=== PATIENT | male | born 1965 | race Caucasian/White ===

== ENCOUNTER 2019-04-08 05:50 | Emergency (ER) | payer BC ==
[2019-04-08 05:59] VITALS: BP 131/86; PULSE 70; RESP 18; TEMP 98
[2019-04-08] MEDS ORDERED: ACET/COD 300 MG/30 MG STARTER PACK 6 TAB BTL PO STA (06:29)
--- NOTE | 2019-04-08 06:29 | ED ---
Lower Extremity Injury HPI - General Chief Complaint: Extremity Injury, Lower Stated Complaint: knee pain Time Seen by Provider: 04/08/19 06:01 Source: patient Mode of arrival: ambulatory Limitations: no limitations - History of Present Illness Initial Comments: 53-year-old male presenting today for chief complaint of right knee pain x 1 day. Patient states he he tripped yesterday falling onto his knee anteriorly then bent his back backwards with his knee still in a flexed position under him. He states that since with flexion he has pain posteriorly. Patient denies dislocation. Denies bruising behind the knee, numbness tingling cooler or pallor of the extremity. Patient states he is able to flex the knee however this increases the pain patient is able to weight-bear he denies any pain in the ankle or foot denies any hip pain and low back pains as injury to the head or neck. Patient was concerned that he hurt a ligament and presented to the ER this morning for further evaluation. Upon arrival patient appears well no distress. - Related Data Allergies Allergy/AdvReac Type Severity Reaction Status Date / Time meperidine [From Demerol] Allergy Rash/Hives Verified 04/08/19 05:58 Review of Systems ROS Statement: Those systems with pertinent positive or pertinent negative responses have been documented in the HPI. ROS Other: All systems not noted in ROS Statement are negative. Past Medical History Past Medical History: Hyperlipidemia History of Any Multi-Drug Resistant Organisms: None Reported Past Surgical History: Adenoidectomy, Ear Surgery, Hernia Repair, Tonsillectomy Additional Past Surgical History / Comment(s): rhinoplasty, uvula removed due to sleep apnea, Past Psychological History: No Psychological Hx Reported Smoking Status: Former smoker Past Alcohol Use History: Daily, Heavy Past Drug Use History: None Reported General Exam - General Exam Comments Initial Comments: General: The patient is awake and alert, in no distress, and does not appear acutely ill. Eye: +3 mm pupils are equal, round and reactive to light, extra-ocular movements are intact. No nystagmus. There is normal conjunctiva bilaterally. No signs of icterus. Cardiovascular: There is a regular rate and rhythm. No murmur, rub or gallop is appreciated. Respiratory: Lungs are clear to auscultation, respirations are non-labored, breath sounds are equal. No wheezes, stridor, rales, or rhonchi. Musculoskeletal: Normal inspection no swelling appreciated of the knees b/l. No ecchymosis, or hematomas noted. Patient refuses to full flex at the right knee secondary to pain but states that he can fully move the extremity. FUll ROM at the ankles and hips b/l Full extension of the knees b/l. Strength 5/5. Sensation intact proximal and distal to the injury site. DP pulses equal bilaterally 2+. Neurological: A&O x 3. CN II-XII intact grossly, There are no obvious motor or sensory deficits. Coordination appears grossly intact. Speech is normal. Skin: Skin is warm and dry and no rashes or lesions are noted. Psychiatric: Cooperative, appropriate mood & affect, normal judgment. Limitations: no limitations Course Vital Signs 04/08/19 05:55 Temperature 98.0 F Pulse Rate 70 Respiratory 18 Rate Blood Pressure 131/86 O2 Sat by Pulse 97 Oximetry Medical Decision Making - Medical Decision Making 53-year-old male presenting today for chief complaint of right knee pain after fall. patient N/V intact on exam. No history of dislocation, pain is posterior, no hematomas or skin changes noted. XR revealed a suprapatellar effusion and otherwise there is no acute osseous process. At this time we cannot rule out ligamentous injury and place patient in a knee immobilizer giving him nonweightbearing instruction or an orthopedic follow-up. Return parameters were discussed and appropriate use of Tylenol 3 which was provided as a starter pack in the emergency department. Patient was agreeable to this care plan and discharge at this time discussed case attending provider Dr. sen who was agreeable to this care plan. Disposition Clinical Impression: Right knee pain, Suprapatellar effusion of knee, Fall Disposition: HOME SELF-CARE Condition: Good Instructions (If sedation given, give patient instructions): Knee Sprain (ED) Additional Instructions: Please use medication as discussed. Please follow-up with orthopedic surgery as discussed, no weight bearing on the right knee use crutches for ambulation, while ambulating recommend knee immobilizer but be sure to remove periodically throughout day and at night to flex and extend knee while sitting. Please return to emergency room if the symptoms increase or worsen or for any other concerns. Is patient prescribed a controlled substance at d/c from ED?: No Referrals: Caio Morton III, MD [Primary Care Provider] - 1-2 days Makim,Vern, MD [STAFF PHYSICIAN] - 1-2 days Time of Disposition: 06:40
--- NOTE | 2019-04-08 06:37 | XR ---
EXAM: XR Right Knee, 3 Views CLINICAL HISTORY: Reason: knee pain after fall TECHNIQUE: Three views of the right knee. COMPARISON: No relevant prior studies available. FINDINGS: Bones/joints: No acute fracture. No dislocation. Small suprapatellar effusion. Soft tissues: Unremarkable. IMPRESSION: No evidence of acute fracture or dislocation.
== END 2019-04-08 07:02 | disposition home or self-care (01) ==
LOC: EC 05:50
DX: M25.461 Effusion, right knee (principal); Z88.5 Allergy status to narcotic agent; Z87.891 Personal history of nicotine dependence
CPT/HCPCS: 99283

== ENCOUNTER → 2020-11-08 | Outpatient (CLI) | payer BC | END | disposition home or self-care (01) | LOC: LABWHC1 11:36 | PROVIDERS: ATTEND Surgery Plastic and Reconstructive Surgery | DX: I10 Essential (primary) hypertension (principal) | CPT/HCPCS: 36415; 93005 ==

== ENCOUNTER 2020-11-25 07:08 | Day surgery (SDC) | payer BC ==
[2020-11-22 14:53] VITALS: BMI 31.5
[~2020-11-25 07:08] MED LIST: DEXAMETHASONE SOD PHOSPHATE 4 MG/ML 1 ML VIAL IV ONE; HEPARIN SODIUM,PORCINE/PF 5,000 UNIT/0.5 ML SYRINGE SQ PRN; HYDROmorphone 0.5 MG/0.5 ML SYRINGE IVP PRN; LACTATED RINGERS 1,000 ML IV SCH; LIDOCAINE 1% (10MG/ML) FOR IV START INTRADERMA PRN; ONDANSETRON 4 MG/2 ML VIAL IVP ONE
[2020-11-25] MEDS ORDERED: GABAPENTIN 300 MG CAP PO STA (07:52)
[2020-11-25] MEDS ORDERED: ACETAMINOPHEN TAB 500 MG TAB PO STA (07:52)
[2020-11-25] MEDS ORDERED: TAMSULOSIN 0.4 MG CAP.ER.24H PO STA (07:52)
--- NOTE | 2020-11-25 07:56 | P.GSHP ---
History of Present Illness H&P Date: 11/25/20 CHIEF COMPLAINT: Ventral hernia HISTORY OF PRESENT ILLNESS: The patient is a 55-year-old male who presents with a history of swelling and pain along the abdomen from a hernia. Now he presents for surgical intervention. PAST MEDICAL HISTORY: Please see list. PAST SURGICAL HISTORY: Please see list. MEDICATIONS: Please see list. ALLERGIES: Please see list. SOCIAL HISTORY: No illicit drug use FAMILY HISTORY: No reports of Crohn disease or ulcerative colitis. REVIEW OF ORGAN SYSTEMS: CONSTITUTIONAL: No reports of fevers or chills. No reports of weight loss despite prior attempts. GI: Denies any blood in stools or constipation. PHYSICAL EXAM: VITAL SIGNS: Stable GENERAL: Well-developed pleasant male in no acute distress. HEENT: No scleral icterus. Extraocular movements grossly intact. Moist buccal mucosa. NECK: Supple without lymphadenopathy. CHEST: Unlabored respirations. Equal bilateral excursions. CARDIOVASCULAR: Regular rate and rhythm. Distal 2+ pulses. ABDOMEN: Soft, nondistended. Palpable defect of the abdomen. No peritoneal signs. MUSCULOSKELETAL: No clubbing, cyanosis, or edema. ASSESSMENT: 1. Ventral hernia PLAN: 1. Recommend proceeding with robotic ventral hernia repair with mesh. 2. Benefits and risks of surgical intervention was discussed including possibility of open technique. 3. DVT prophylaxis. 4. Antibiotic prophylaxis. 5. Non necrotic pain management including abdominal wall blocks described Past Medical History Past Medical History: Hearing Disorder / Deafness, Hyperlipidemia Additional Past Medical History / Comment(s): deaf right ear History of Any Multi-Drug Resistant Organisms: None Reported Past Surgical History: Adenoidectomy, Ear Surgery, Hernia Repair, Tonsillectomy Additional Past Surgical History / Comment(s): rhinoplasty, uvula & palatopharyngoplasty due to sleep apnea, decompression surg. for Meniere's Past Anesthesia/Blood Transfusion Reactions: No Reported Reaction Additional Past Anesthesia/Blood Transfusion Reaction / Comment(s): slow to wake up Past Psychological History: No Psychological Hx Reported Smoking Status: Former smoker Past Alcohol Use History: Daily, Heavy Additional Past Alcohol Use History / Comment(s): quit smoking 10 yrs. ago, smoked for 20 yrs. 1ppd, 3-4 glasses bourbon daily Past Drug Use History: None Reported - Past Family History Mother Family Medical History: No Reported History Medications and Allergies Home Medications Medication Instructions Recorded Confirmed Type Atorvastatin [Lipitor] 40 mg PO DAILY 11/22/20 11/25/20 History Allergies Allergy/AdvReac Type Severity Reaction Status Date / Time meperidine [From Demerol] Allergy Rash/Hives Verified 11/22/20 14:35 Surgical - Exam Vital Signs Temp Pulse Resp BP Pulse Ox 97.5 F L 69 20 123/84 95 11/25/20 07:26 11/25/20 07:26 11/25/20 07:26 11/25/20 07:26 11/25/20 07:26
[2020-11-25 08:27] LABS: Basophils # (A) 0.1 k/uL (0-0.2); Basophils % (A) 1 %; Eosinophils # (A) 0.3 k/uL (0-0.7); Eosinophils % (A) 5 %; HCT 40.5 % (39.0-53.0); HGB 14.8 gm/dL (13.0-17.5); Hyperchromasia Slight; Lymphocytes # (A) 1.3 k/uL (1.0-4.8); Lymphocytes % (A) 20 %; MCH 34.5 pg (25.0-35.0); MCHC 36.5 g/dL (31.0-37.0); MCV 94.6 fL (80.0-100.0); Monocytes # (A) 0.5 k/uL (0-1.0); Monocytes % (A) 8 %; Neutrophils # (A) 4.2 k/uL (1.3-7.7); Neutrophils % (A) 63 %; Platelet Count 221 k/uL (150-450); RBC 4.28 m/uL (4.30-5.90); RDW 12.9 % (11.5-15.5); WBC 6.8 k/uL (3.8-10.6)
[2020-11-25 08:32] LABS: ALT 34 U/L (4-49); AST 46 U/L (17-59); African American GFR (CKD) >90 (>60 ml/min/1.73 sqM); Albumin 4.1 g/dL (3.5-5.0); Alkaline Phosphatase 75 U/L (38-126); Anion Gap 7 mmol/L; Blood Urea Nitrogen 12 mg/dL (9-20); Calcium 9.7 mg/dL (8.4-10.2); Carbon Dioxide 24 mmol/L (22-30); Chloride 107 mmol/L (98-107); Glucose 107 mg/dL (74-99); Non-African American GFR(CKD) >90 (>60 ml/min/1.73 sqM); Potassium 4.1 mmol/L (3.5-5.1); Sodium 138 mmol/L (137-145); Total Bilirubin 0.7 mg/dL (0.2-1.3); Total Protein 6.8 g/dL (6.3-8.2)
[2020-11-25] MEDS ORDERED: MELOXICAM 7.5 MG TAB PO SCH (09:00)
--- NOTE | 2020-11-25 09:04 | P.ANPRN ---
Procedure Note - Anesthesia - Nerve Block Performed Bilateral Transversus Abdominis Single Date of Procedure: 11/25/20 Procedure Start Time: : Procedure Stop Time: Location of Patient: PreOp Indication: Acute Post-Operative Pain, Requested by Surgeon Specifically requested for management of pain by DrMk: Lauren Bray Sedation Type: Sedate with meaningful contact maintained Preparation: Sterile Prep Position: Supine Needle Gauge: 20 Ultrasound used to visualize needle placement: Yes Ultrasound used to observe medication spread: Yes Injectate: 0.5% Ropivacaine (see comment for volume) Blood Aspirated: No Pain Paresthesia on Injection Noted: No Resistance on Injection: Normal Image Stored and Saved: Yes Events: Uneventful and Well Tolerated (15 ml of Ropivacaine 0.5% injected on each side of the abdomen.)
[2020-11-25] MEDS ORDERED: fentaNYL (PF) 50 MCG/ML 2 ML AMP ONE (09:08)
[2020-11-25] MEDS ORDERED: NEOSTIGMINE 1 MG/ML 10 ML VIAL ONE (09:08)
[2020-11-25] MEDS ORDERED: LIDOCAINE 1% INJ 10MG/ML (20 ML MDV) ONE (09:08)
[2020-11-25] MEDS ORDERED: PROPOFOL 10 MG/ML 20 ML VIAL IV ONE (09:08)
[2020-11-25] MEDS ORDERED: MIDAZOLAM 2 MG/2 ML VIAL ONE (09:08)
[2020-11-25] MEDS ORDERED: SUCCINYLCHOLINE CHLORIDE VIAL 200 MG/10 ML VIAL IV ONE (09:08)
[2020-11-25] MEDS ORDERED: KETOROLAC 15 MG/ML 1 ML VIAL ONE (09:08)
[2020-11-25] MEDS ORDERED: ROCURONIUM 10 MG/ML (5 ML VIAL) IV ONE (09:08)
[2020-11-25] MEDS ORDERED: ROPIVACAINE 5 MG/ML 30 ML VIAL ONE (09:08)
[2020-11-25] MEDS ORDERED: GLYCOPYRROLATE 0.2 MG/ML 2 ML VIAL ONE (09:08)
[2020-11-25] MEDS ORDERED: HYDROmorphone (PF) 1 MG/ML ONE (09:08)
[2020-11-25] MEDS ORDERED: BUPIVACAINE (PF) 0.5% 30 ML VIAL SQ ONE ×2 (09:13→09:39)
[2020-11-25] MEDS ORDERED: LACTATED RINGERS 1,000 ML IV ONE (10:50)
[2020-11-25 11:21] VITALS: TEMP 97.8
--- NOTE | 2020-11-25 11:36 | P.OP ---
Date of Procedure: 11/25/20 Description of Procedure: SURGEON: LAUREN BRAY MD PREOPERATIVE DIAGNOSES: 1. Recurrent ventral hernia 2. Hyperlipidemia 3. Obesity due to excess calories, BMI 32.3. POSTOPERATIVE DIAGNOSES: 1. Recurrent ventral hernia with incarceration 2. Hyperlipidemia 3. Obesity due to excess calories, BMI 32.3. 4. Intra-abdominal adhesions involving small bowel and mesh OPERATION: 1. Robotic-assisted da Cyndee Xi laparoscopic lysis of adhesions over 1 hour 2. Robotic-assisted da Cyndee Xi laparoscopic repair of recurrent incarcerated umbilical hernia with mesh, ventralight ST mesh 11.4 cm 3. Removal of foreign body, mesh Anesthesia: GETA, regional, local Estimated Blood Loss (ml): 5 Pathology: 1. Incarcerated umbilical hernia and foreign body/mesh COMPLICATIONS: None. Operative Findings: 1. Recurrent incarcerated umbilical hernia involving small bowel and intra-abdominal fat 2. Severe intra-abdominal adhesions involving small bowel to umbilical mesh repair 3. Extensive lysis of adhesions without enterotomies using sharp dissection and Bovie cautery INDICATIONS: The patient is a 55-year-old male who presents with abdominal pain including recent umbilical hernia repair for recurrence. Surgical intervention with laparoscopic versus robotic and open techniques were reviewed. Placement of mesh was also reviewed. Benefits and risks were thoroughly described. Informed consent was obtained. DESCRIPTION OF PROCEDURE: The patient was brought into the operating room and laid in supine position. After general induction, the abdomen had been prepped and draped in standard sterile fashion. Ioban draping was also placed. Prior to incision, a timeout protocol was confirmed with surgical team regarding the patient's name including procedures to be performed. The robot was primed prior to the procedure. A field block using local anesthetic was placed along hernia site including the proposed port sites. Initial incision was made with an #11 blade along the left upper quadrant. A 0 degree 5 mm laparoscopic trocar entry was performed and insufflated. Three 8 mm ports were placed along the left lateral abdominal wall under direct localization after exchanging the 5-mm for an 8 mm port. Placements of the ports were 15 cm from the target anatomy and 10 cm apart. An accessory 12 mm port was placed at the left lateral abdominal wall for exchange of mesh including sutures. The [employer] Xi robot was previously primed, prepped and draped then docked from the left side of the patient onto the left side of the patient. I then sat at the robot Da Cyndee Xi console where working arms of the robot including Bovie cautery connected to robotic scissors, needle lokie driver, and graspers placed by the undertaker assistant. Incarcerated small bowel was adherent to mesh and peritoneal fat was incarcerated along the inferior edge of the mesh along prior umbilical repair. The small bowel was carefully freed from the mesh as severe adhesions were tethering the small bowel and fat between abdominal wall to 2-cm mesh from the inferior aspect, 4 o'clock to 7:00 position. Extensive lysis of adhesions using scissors and cautery was performed over 1 hour without enterotomies. The foreign body of the mesh was completely excised and freed from surrounding tissue including abdominal wall. The fascia was explored for any further defects. Mild diastasis recti approximately 2 cm was identified above the umbilicus. The fascia repair was intact. Next, ventralight ST mesh 11.4 cm was placed with the rough side towards the abdominal wall as to cover the diastasis recti including umbilical defect. 2-0 VLOC 9 inch sutures were used to fixate the mesh. A final endoscopic imaging was obtained. All instruments and pneumoperitoneum were evacuated from the abdominal cavity. The da Cyndee Xi robot was undocked from the patient. I re-scrubbed into the case for closure of incisions. The fascia of the 12-mm port was probed and less than 8-mm in size. The incisions were reapproximated using 4-0 Monocryl in an interrupted subcuticular fashion. Liquid glue was applied to the skin after cleansing the skin with normal saline and dilute hydrogen peroxide. An abdominal binder was placed. An umbilical dressing was placed prior. At the end of the procedure, needle, sponge, and instrument count had been verified correct by surgical appliances salesperson. The patient was taken to the postanesthesia care unit in stable condition. Plan - Discharge Summary Discharge Rx Participant: Yes New Discharge Prescriptions: New Ibuprofen [Motrin] 600 mg PO Q8HR PRN #30 tab PRN Reason: Pain Acetaminophen Tab [Tylenol Tab] 1,000 mg PO Q6HR PRN #30 tablet PRN Reason: Pain Simethicone [Gas-X] 125 mg PO AC-TID PRN #20 cap PRN Reason: Pain Continue Atorvastatin [Lipitor] 40 mg PO DAILY Discharge Medication List Atorvastatin [Lipitor] 40 mg PO DAILY 11/22/20 [History] Acetaminophen Tab [Tylenol Tab] 1,000 mg PO Q6HR PRN #30 tablet 11/25/20 [Rx] Ibuprofen [Motrin] 600 mg PO Q8HR PRN #30 tab 11/25/20 [Rx] Simethicone [Gas-X] 125 mg PO AC-TID PRN #20 cap 11/25/20 [Rx] Follow up Appointment(s)/Referral(s): Lauren Bray MD [STAFF PHYSICIAN] - 12/06/20 (Option for telehealth on November 29. Please notify office. ) Patient Instructions/Handouts: Ventral Hernia Repair (GEN), Abdominal Binder (DC), Laparoscopic Herniorrhaphy (IP), *[facility] - Managing Your Pain After Surgery Without Opioids Activity/Diet/Wound Care/Special Instructions: No lifting over 4 pounds in 4 weeks until December 26. June shower. No bath tub soaks for two weeks until December 09. Diet as tolerated. Use Tylenol and ibuprofen or Aleve scheduled for the next 24-48 hours for best pain relief. Use ice along incisions for today to prevent swelling. Discharge Disposition: HOME SELF-CARE
[2020-11-25 11:40] VITALS: RESP 16
[2020-11-25] MEDS ORDERED: SIMETHICONE 80 MG CHEWABLE PO ONE (13:01)
[2020-11-25 13:12] VITALS: BP 121/82; PULSE 80
== END 2020-11-25 13:47 | disposition home or self-care (01) ==
LOC: OR 07:08
PROVIDERS: ATTEND Surgery Plastic and Reconstructive Surgery
DX: K42.0 Umbilical hernia with obstruction, without gangrene (principal); K66.0 Peritoneal adhesions (postprocedural) (postinfection); E78.5 Hyperlipidemia, unspecified; E66.09 Other obesity due to excess calories; Z68.32 Body mass index [BMI] 32.0-32.9, adult; H91.90 Unspecified hearing loss, unspecified ear; Z98.890 Other specified postprocedural states; G47.30 Sleep apnea, unspecified; Z87.891 Personal history of nicotine dependence; Z79.899 Other long term (current) drug therapy; Z88.5 Allergy status to narcotic agent
CPT/HCPCS: 49329; 49653; S2900; 64488; 80053; 85025; 88302

== ENCOUNTER 2021-08-09 05:47 | Emergency (ER) | payer BC ==
[2021-08-09 06:01] VITALS: RESP 18; TEMP 97.9
[2021-08-09] MEDS ORDERED: SODIUM CHLORIDE 0.9% 2,000 ML IV STA (06:19)
--- NOTE | 2021-08-09 07:01 | CT ---
EXAMINATION TYPE: CT abdomen pelvis wo con DATE OF EXAM: 08/09/2021 HISTORY: Left flank pain with nausea CT DLP: 9787 mGycm. Automated Exposure Control for Dose Reduction was Utilized. TECHNIQUE: CT scan of the abdomen and pelvis is performed without oral or IV contrast. COMPARISON: NONE FINDINGS: Within the limitations of a non-contrast study, the following observations are made. LUNG BASES: Dependent atelectasis in both bases.. LIVER/GB: No significant abnormality is appreciated. PANCREAS: No significant abnormality is seen. SPLEEN: No significant abnormality is seen. ADRENALS: No significant abnormality is seen. KIDNEYS: No right-sided renal calculi or hydronephrosis. There is a single 1 to 2 mm nonobstructing c alculus left kidney midpole level coronal image 60. There is obstructing 6 mm calculus proximal left ureter on image 57 causing mild to minimal left-sided hydronephrosis. No intraluminal calculus in the bladder. BOWEL: Stomach poorly distended and thus suboptimally evaluated. No suspicious small or large bowel d ilatation is seen. GENITAL ORGANS: No gross abnormality seen. LYMPH NODES: No greater than 1cm abdominal or pelvic lymph nodes are appreciated. OSSEOUS STRUCTURES: Moderate disc space narrowing and vacuum disc phenomenon L5-S1 level. OTHER: Mild calcified plaque of the aorta extends into branch vessels. IMPRESSION: There is 6 mm calculus in proximal left ureter causing minimal left-sided hydronephrosis.
[2021-08-09 07:07] LABS: Albumin 4.6 g/dL (3.5-5.0); Calcium 9.3 mg/dL (8.4-10.2); Potassium 3.8 mmol/L (3.5-5.1); Total Bilirubin 0.7 mg/dL (0.2-1.3); Total Protein 7.4 g/dL (6.3-8.2)
[2021-08-09 07:14] LABS: Basophils # (A) 0.1 k/uL (0-0.2); Basophils % (A) 1 %; Eosinophils # (A) 0.4 k/uL (0-0.7); Eosinophils % (A) 4 %; HGB 15.2 gm/dL (13.0-17.5); Lymphocytes # (A) 2.2 k/uL (1.0-4.8); Lymphocytes % (A) 22 %; MCH 32.3 pg (25.0-35.0); MCHC 33.8 g/dL (31.0-37.0); MCV 95.5 fL (80.0-100.0); Mean Platelet Volume 9.1; Monocytes # (A) 0.8 k/uL (0-1.0); Monocytes % (A) 8 %; Neutrophils % (A) 61 %; Platelet Count 263 k/uL (150-450); RBC 4.71 m/uL (4.30-5.90); RDW 12.2 % (11.5-15.5); WBC 9.9 k/uL (3.8-10.6)
[2021-08-09 07:39] LABS: Appearance,Urine Cloudy (Clear); Bilirubin,Urine Negative (Negative); Blood,Urine Large (Negative); Color,Urine Yellow; Glucose,Urine (UA) Negative (Negative); Ketones,Urine Negative (Negative); Leukocyte Esterase,Urine Negative (Negative); Mucus,Urine Many /hpf; Nitrite,Urine Negative (Negative); PH, Urine 5.5 (5.0-8.0); Protein,Urine 1+ (Negative); RBC,Urine >182 /hpf (0-5); Specific Gravity,Urine 1.026 (1.001-1.035); Urobilinogen,Urine <2.0 mg/dL (<2.0); WBC,Urine 4 /hpf (0-5)
--- NOTE | 2021-08-09 07:55 | ED ---
Abdominal Pain HPI - General Chief Complaint: Abdominal Pain Stated Complaint: flank pain Time Seen by Provider: 08/09/21 06:05 Source: patient, EMS, RN notes reviewed Mode of arrival: EMS Limitations: no limitations - History of Present Illness Initial Comments: 55-year-old male presents emergency Department chief complaint of left flank pain. Patient is a sudden onset of pain around 4 AM. Patient states that he had severe pain nothing really make it feel better or worse. Patient states he became nauseous started vomiting. He states that he's never had any like this in the past history of kidney stones patient has no dysuria no hematuria no di arrhea no constipation no fevers or chills no other associated complaints - Related Data Home Medications Medication Instructions Recorded Confirmed Atorvastatin [Lipitor] 40 mg PO DAILY 11/22/20 04/12/21 Cephalexin [Keflex] 500 mg PO QID 04/12/21 04/12/21 HYDROcodone/APAP 5-325MG [[place] 1 tab PO Q8H PRN 04/12/21 04/12/21 5-325] SILVER sulfADIAZINE CREAM 1 applic TOPICAL BID 04/12/21 04/12/21 [Silvadene Cream] Previous Rx's Medication Instructions Recorded HYDROcodone/APAP 5-325MG [[place] 5] 1 each PO Q6HR PRN #12 tab 08/09/21 Ketorolac [Toradol] 10 mg PO Q8HR #15 tab 08/09/21 Ondansetron Odt [Zofran Odt] 4 mg PO Q8HR PRN #10 tab 08/09/21 Tamsulosin [Flomax] 0.4 mg PO DAILY #7 cap 08/09/21 Allergies Allergy/AdvReac Type Severity Reaction Status Date / Time meperidine [From Demerol] Allergy Rash/Hives Verified 08/09/21 06:01 Review of Systems ROS Statement: Those systems with pertinent positive or pertinent negative responses have been documented in the HPI. ROS Other: All systems not noted in ROS Statement are negative. Past Medical History Past Medical History: Hearing Disorder / Deafness, Hyperlipidemia Additional Past Medical History / Comment(s): deaf right ear History of Any Multi-Drug Resistant Organisms: None Reported Past Surgical History: Adenoidectomy, Ear Surgery, Hernia Repair, Tonsillectomy Additional Past Surgical History / Comment(s): rhinoplasty, uvula & palatopharyngoplasty due to sleep apnea, decompression surg. for Meniere's Past Anesthesia/Blood Transfusion Reactions: No Reported Reaction Additional Past Anesthesia/Blood Transfusion Reaction / Comment(s): slow to wake up Past Psychological History: No Psychological Hx Reported Smoking Status: Former smoker Past Alcohol Use History: Daily, Heavy Past Drug Use History: None Reported - Past Family History Mother Family Medical History: No Reported History General Exam Limitations: no limitations General appearance: alert, in no apparent distress Head exam: Present: atraumatic, normocephalic, normal inspection Eye exam: Present: normal appearance, PERRL, EOMI. Absent: scleral icterus, conjunctival injection, periorbital swelling ENT exam: Present: normal exam, mucous membranes moist Neck exam: Present: normal inspection, full ROM. Absent: tenderness, meningismus, lymphadenopathy Respiratory exam: Present: normal lung sounds bilaterally. Absent: respiratory distress, wheezes, rales, rhonchi, stridor Cardiovascular Exam: Present: regular rate, normal rhythm, normal heart sounds. Absent: systolic murmur, diastolic murmur, rubs, gallop, clicks GI/Abdominal exam: Present: soft, normal bowel sounds. Absent: distended, tenderness, guarding, rebound, rigid Back exam: Present: CVA tenderness (L) (Minimal). Absent: CVA tenderness (R) Course Vital Signs 08/09/21 05:57 Temperature 97.9 F Pulse Rate 74 Respiratory 18 Rate Blood Pressure 172/104 O2 Sat by Pulse 97 Oximetry Medical Decision Making - Medical Decision Making CT shows evidence of left-sided ureteral calculi. This is approximate 6 mm \. Patient pain is essentially resolved at this time he has very mild pain he denies any nausea vomiting after given antiemetics. Patient will follow-up with urology return parameters were discussed. - Lab Data Result diagrams: 08/09/21 06:33 08/09/21 06:33 Lab Results 08/09/21 08/09/21 08/09/21 Range/Units 06:33 06:33 07:16 WBC 9.9 (3.8-10.6) k/uL RBC 4.71 (4.30-5.90) m/uL Hgb 15.2 (13.0-17.5) gm/dL Hct 45.0 (39.0-53.0) % MCV 95.5 (80.0-100.0) fL MCH 32.3 (25.0-35.0) pg MCHC 33.8 (31.0-37.0) g/dL RDW 12.2 (11.5-15.5) % Plt Count 263 (150-450) k/uL MPV 9.1 Neutrophils % 61 % Lymphocytes % 22 % Monocytes % 8 % Eosinophils % 4 % Basophils % 1 % Neutrophils # 6.0 (1.3-7.7) k/uL Lymphocytes # 2.2 (1.0-4.8) k/uL Monocytes # 0.8 (0-1.0) k/uL Eosinophils # 0.4 (0-0.7) k/uL Basophils # 0.1 (0-0.2) k/uL Sodium 140 (137-145) mmol/L Potassium 3.8 (3.5-5.1) mmol/L Chloride 107 (98-107) mmol/L Carbon Dioxide 20 L (22-30) mmol/L Anion Gap 13 mmol/L BUN 10 (9-20) mg/dL Creatinine 1.10 (0.66-1.25) mg/dL Est GFR (CKD-EPI)AfAm 88 (>60 ml/min/1.73 sqM) Est GFR (CKD-EPI)NonAf 76 (>60 ml/min/1.73 sqM) Glucose 126 H (74-99) mg/dL Calcium 9.3 (8.4-10.2) mg/dL Total Bilirubin 0.7 (0.2-1.3) mg/dL AST 42 (17-59) U/L ALT 38 (4-49) U/L Alkaline Phosphatase 85 (38-126) U/L Total Protein 7.4 (6.3-8.2) g/dL Albumin 4.6 (3.5-5.0) g/dL Amylase 56 (30-110) U/L Lipase 78 (23-300) U/L Urine Color Yellow Urine Appearance Cloudy (Clear) Urine pH 5.5 (5.0-8.0) Ur Specific [place] 1.026 (1.001-1.035) Urine Protein 1+ H (Negative) Urine Glucose (UA) Negative (Negative) Urine Ketones Negative (Negative) Urine Blood Large H (Negative) Urine Nitrite Negative (Negative) Urine Bilirubin Negative (Negative) Urine Urobilinogen <2.0 (<2.0) mg/dL Ur Leukocyte Esterase Negative (Negative) Urine RBC >182 H (0-5) /hpf Urine WBC 4 (0-5) /hpf Urine Mucus Many H (None) /hpf Disposition Clinical Impression: Left ureteral calculus Disposition: HOME SELF-CARE Condition: Stable Instructions (If sedation given, give patient instructions): Kidney Stones (ED) Additional Instructions: Please return to the Emergency Department if symptoms worsen or any other [place] rns. Prescriptions: Tamsulosin [Flomax] 0.4 mg PO DAILY #7 cap HYDROcodone/APAP 5-325MG [[place] 5] 1 each PO Q6HR PRN #12 tab PRN Reason: Pain Ketorolac [Toradol] 10 mg PO Q8HR #15 tab Ondansetron Odt [Zofran Odt] 4 mg PO Q8HR PRN #10 tab PRN Reason: Nausea Is patient prescribed a controlled substance at d/c from ED?: Yes When asked, does pt state using other controlled substances?: No If prescribed controlled substance>3 days was MAPS reviewed?: Prescribed <3 Days If opioid is for acute pain is fill amount 7 days or less?: Yes If Rx opioid, was Start Talking consent form obtained?: Yes Referrals: Caio Morton III, MD [Primary Care Provider] - 1-2 days Chano Gonzales MD [STAFF PHYSICIAN] - 1-2 days Time of Disposition: 07:55
[2021-08-09 08:19] VITALS: BP 164/84; PULSE 72
== END 2021-08-09 08:19 | disposition home or self-care (01) ==
LOC: EC 05:47
DX: N13.2 Hydronephrosis with renal and ureteral calculous obstruction (principal); E78.5 Hyperlipidemia, unspecified; Z87.891 Personal history of nicotine dependence; Z88.5 Allergy status to narcotic agent; Z79.899 Other long term (current) drug therapy
CPT/HCPCS: 36415; 74176; 80053; 81001; 82150; 83690; 85025; 96360; 96361; 99284

== ENCOUNTER → 2021-09-18 | Outpatient (CLI) | payer BC ==
--- NOTE | 2021-09-18 16:50 | XR ---
KUB HISTORY: Left-sided kidney stone Frontal KUB and [address] scan 08/09/2021 The proximal ureteral calculus seen on prior CT is not seen definitively on today's exam. No evident bowel obstruction or pneumoperitoneum. Bone mineralization is normal, as a slight spinal c urvature. IMPRESSION: No abnormality evident.
== END | disposition home or self-care (01) ==
LOC: RADXRMAIN 16:07
PROVIDERS: ATTEND Urology
DX: N20.2 Calculus of kidney with calculus of ureter (principal)
CPT/HCPCS: 74018